=== PATIENT | female | born 1980 | race Caucasian/White ===

== ENCOUNTER → 2019-08-02 15:34 | Outpatient (CLI) | payer SELFPAY ==
[2019-08-02 16:12] LABS: ANION GAP 10.2 mmol/L (8-16); CALCIUM 8.7 mg/dL (8.5-10.1); CARBON DIOXIDE 32.7 mmol/L (21.0-32.0); CREATININE - SERUM 0.9 mg/dL (0.6-1.3); POTASSIUM - SERUM 3.9 mmol/L (3.5-5.1)
[2019-08-02 16:19] LABS: ALBUMIN 3.9 g/dL (3.4-5.0); BILIRUBIN - TOTAL 0.27 mg/dL (0.2-1.3); CHOL - HDL RATIO 2.8 ratio (2.3-4.1); LDL-HDL RATIO 1.4 ratio (1.5-3.5); PROTEIN - SERUM 7.7 g/dL (6.4-8.2)
[2019-08-02 20:56] LABS: HEMATOCRIT 39.5 % (36.0-48.0); HEMOGLOBIN 12.9 g/dL (12-16); MCH 29.5 pg (26.0-34.0); MCHC 32.7 g/dL (31.0-37.0); MCV 90.2 fL (80.0-100.0); MEAN PLATELET VOLUME 8.9 fL (7.4-10.4); PLATELET COUNT 213 10x3/uL (130-400); RBC 4.38 10x6/uL (4.00-5.40); RDW 12.7 % (11.5-14.5); WBC 6.1 10x3/uL (4.8-10.8)
[2019-08-02 23:00] LABS: EOSINOPHILS 5 % (0-7); LYMPHOCYTES 35 % (15-50); MONOCYTES 4 % (2-11); NEUTROPHILS 56 % (40-80); PLATELET ESTIMATE NORMAL
== END | disposition home or self-care (01) ==
LOC: D.LABREF 15:34
PROVIDERS: ATTEND Legal Medicine
DX: I10 Essential (primary) hypertension (principal); E78.2 Mixed hyperlipidemia; E55.9 Vitamin D deficiency, unspecified; R73.9 Hyperglycemia, unspecified